=== PATIENT | male | born 1975 | race Caucasian/White ===

== ENCOUNTER 2017-07-19 08:28 | Day surgery (SDC) | payer OTHER ==
[~2017-07-19 08:28] MED LIST: LACTATED RINGER'S 1,000 ML IV
[2017-07-19] MEDS ORDERED: LIDOCAINE 100 MG SYRINGE (10:44)
[2017-07-19] MEDS ORDERED: PROPOFOL 100 ML (10:44)
[2017-07-19] MEDS ORDERED: MIDAZOLAM 1 MG/ML 2 ML INJ (10:44)
[2017-07-19] MEDS ORDERED: FENTAnyl 50 MCG/ML VIAL ×2 (10:44→12:30)
[2017-07-19] MEDS ORDERED: CEFAZOLIN 1 GM INJ (11:34)
[2017-07-19] MEDS ORDERED: ONDANSETRON 4 MG INJ ×2 (11:34→12:35)
[2017-07-19] MEDS ORDERED: DEXAMETHASONE 4 MG/ML 1 ML INJ (11:34)
[2017-07-19] MEDS ORDERED: ACETAMINOPHEN 1000MG/100ML IV 100 ML (11:40)
[2017-07-19] MEDS: BUPIVACAINE 0.5% (SDV) 30 ML INJ (12:08)
[2017-07-19] MEDS ORDERED: FENTAnyl 50 MCG/ML VIAL IV (12:30)
[2017-07-19] MEDS ORDERED: HYDROmorphONE (0.2 MG/ML) 10ML SYG IV ×2 (12:30→12:35)
[2017-07-19] MEDS ORDERED: MEPERIDINE 25 MG INJ (12:34)
[2017-07-19] MEDS: HYDROmorphONE (0.2 MG/ML) 10ML SYG IV ×2 (12:37→12:50)
[2017-07-19] MEDS: FENTAnyl 50 MCG/ML VIAL IV (12:37)
[2017-07-19] MEDS: ONDANSETRON 4 MG INJ IV (12:38)
[2017-07-19] MEDS: MEPERIDINE 25 MG INJ IV (12:38)
[2017-07-19] MEDS: OXYCODONE/ACETAMINOPHEN (5/325) TAB PO (13:33)
== END 2017-07-19 13:55 | disposition home or self-care (01) ==
LOC: SDS 08:28
DX: S62.611D Displaced fracture of proximal phalanx of left index finger, subsequent encounter for fracture with routine healing (principal); S64.491D Injury of digital nerve of left index finger, subsequent encounter; S63.631D Sprain of interphalangeal joint of left index finger, subsequent encounter; X58.XXXD Exposure to other specified factors, subsequent encounter; F17.200 Nicotine dependence, unspecified, uncomplicated
CPT/HCPCS: 26540